=== PATIENT | female | born 1980 | race African-American/Black ===

== ENCOUNTER 2020-12-20 08:35 | Outpatient (CLI) | payer OTHER ==
--- NOTE | 2020-12-20 09:29 | ULT ---
Pelvic ultrasound: 12/20/2020 COMPARISON: None available HISTORY: Uterine fibroid disease TECHNIQUE: Multiplanar grayscale sonographic imaging of the pelvis obtained with transabdominal and e ndovaginal imaging. The ovaries are assessed with Doppler interrogation including color flow and spectral analysis FINDINGS: There is a retroverted uterus measuring 10.3 x 6.7 x 6.3 cm. The endometrial stripe measure s in the 6 mm range, within normal limits. The right ovary measures 3.2 x 4.0 x 2.6 cm and demonstrates normal blood flow without evidence for m ass. There is a mildly prominent follicle measuring in the 9-10 mm range. The left ovary measures 2.6 x 3.1 x 2.3 cm in demonstrates normal blood flow. There is a small left o varian cyst measuring in the 1.3 cm range. There is heterogeneity of the uterine fundus with a heterogeneously hypoechoic solid appearing lesion measuring 3.3 x 3.4 x 3.1 cm which is most consistent with an intramural uterine fibroid. No free fluid is seen within the pelvis. IMPRESSION: Findings suggesting a 3.4 cm fundal intramural uterine fibroid.
== END 2020-12-20 08:36 | disposition home or self-care (01) ==
LOC: BICULT 08:35
PROVIDERS: ATTEND Family Medicine
DX: D25.9 Leiomyoma of uterus, unspecified (principal); N92.0 Excessive and frequent menstruation with regular cycle; D64.9 Anemia, unspecified
CPT/HCPCS: 76856

== ENCOUNTER 2021-04-26 12:18 | Outpatient (CLI) | payer OTHER | END 2021-04-26 12:19 | disposition home or self-care (01) | LOC: BICMRI 12:18 | PROVIDERS: ATTEND Family Medicine | DX: M17.12 Unilateral primary osteoarthritis, left knee (principal); M25.462 Effusion, left knee; M71.22 Synovial cyst of popliteal space [Baker], left knee ==

== ENCOUNTER 2024-12-23 08:26 | Outpatient (CLI) | payer OTHER | END 2024-12-23 08:27 | disposition home or self-care (01) | LOC: BICRAD 08:26 | PROVIDERS: ATTEND Family Medicine | DX: Z97.5 Presence of (intrauterine) contraceptive device (principal) | CPT/HCPCS: 74019 ==